=== PATIENT | female | born 1955 | race Caucasian/White ===

== ENCOUNTER → 2023-11-21 12:32 | Outpatient (REF) | payer MEDICARE, SELFPAY | LOC: WDC 12:32 | PROVIDERS: ATTENDING PHYSICIAN Family Medicine | DX: Z12.31 Encounter for screening mammogram for malignant neoplasm of breast (principal) | CPT/HCPCS: 77063; 77067 ==

== ENCOUNTER → 2024-07-22 14:09 | Outpatient (REF) | payer MEDICARE, SELFPAY | LOC: HWRAD 14:09 | PROVIDERS: ATTENDING PHYSICIAN Otolaryngology; FAMILY PHYSICIAN Family Medicine | DX: J32.0 Chronic maxillary sinusitis (principal); J34.1 Cyst and mucocele of nose and nasal sinus | CPT/HCPCS: 70486 ==

== ENCOUNTER 2024-08-15 06:34 | Day surgery (SDC) | payer MEDICARE, SELFPAY ==
[2024-08-01 14:22] VITALS: BMI 22.7
[2024-08-15] VITALS (7 sets, daily range): BP systolic 115–123; BP diastolic 59–71; BMI 22.7
[2024-08-15] MEDS: NORMOSOL-R/PLASMALYTE-A 1000 IV (09:50)
== END 2024-08-15 14:03 | disposition home or self-care (01) ==
LOC: SDS 06:34
PROVIDERS: ATTENDING PHYSICIAN Otolaryngology; FAMILY PHYSICIAN Family Medicine
DX: R04.0 Epistaxis (principal); Q27.30 Arteriovenous malformation, site unspecified
CPT/HCPCS: 30117; 88305

== ENCOUNTER → 2024-11-02 09:56 | Outpatient (REF) | payer MEDICARE, SELFPAY | LOC: RAD 09:56 | PROVIDERS: ATTENDING PHYSICIAN Nurse Practitioner Adult Health | DX: M25.562 Pain in left knee (principal); R22.41 Localized swelling, mass and lump, right lower limb | CPT/HCPCS: 73564 ==

== ENCOUNTER → 2024-11-21 12:38 | Outpatient (REF) | payer MEDICARE, SELFPAY | LOC: WDC 12:38 | PROVIDERS: ATTENDING PHYSICIAN Family Medicine | DX: Z12.31 Encounter for screening mammogram for malignant neoplasm of breast (principal) | CPT/HCPCS: 77063; 77067 ==

== ENCOUNTER → 2024-12-02 11:44 | Outpatient (REF) | payer MEDICARE, SELFPAY | LOC: RAD 11:44 | PROVIDERS: ATTENDING PHYSICIAN Family Medicine; FAMILY PHYSICIAN Nurse Practitioner Adult Health | DX: M85.89 Other specified disorders of bone density and structure, multiple sites (principal); Z78.0 Asymptomatic menopausal state | CPT/HCPCS: 77080 ==